=== PATIENT | female | born 1960 | race Caucasian/White ===

== ENCOUNTER 2018-04-11 05:55 | Emergency (ER) | payer OTHER ==
[2018-04-11] MEDS ORDERED: KETOROLAC 30 MG/1 ML SDV IVP ONE (06:00)
[2018-04-11] MEDS ORDERED: ONDANSETRON 4 MG/2 ML VIAL IVP ONE ×2 (06:00→08:22)
[2018-04-11] MEDS ORDERED: NS 1,000 ML IV ONE ×2 (06:00→08:22)
[2018-04-11] MEDS ORDERED: HALOPERIDOL LACT 5 MG/ML INJ IVP ONE ×3 (06:05→06:53)
--- NOTE | 2018-04-11 06:08 | EDPHY ---
H & P Stated Complaint: LLQ abd pain, n/v, "feels like my pancreatitis" Source: Patient, EMS Exam Limitations: No limitations - Personal History Current Tetanus Diphtheria and Acellular Pertussis (TDAP): Yes Tetanus Vaccine Date: 2015 - Medical/Surgical History Hx Asthma: No Hx Chronic Respiratory Disease: No Hx Diabetes: No Hx Cardiac Disease: No Hx Renal Disease: No Hx Cirrhosis: No Hx Alcoholism: No Hx HIV/AIDS: No Hx Splenectomy or Spleen Trauma: No Other PMH: Divertiulitis, pancreatitis - Social History Smoking Status: Heavy smoker Time Seen by Provider: 04/11/18 06:00 HPI/ROS: HPI The patient presents with left lower quadrant abdominal pain for the last several hours which feels like her prior episodes of pancreatitis, she is brought in by ambulance from her car outside of a bar. 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 The pain is associated with nausea and vomiting, has been constant and is moderate in severity. She has had this pain before with pancreatitis. She had 1 episode of pancreatitis 1 year ago and another about 15 years ago. She does not drink alcohol. REVIEW OF SYSTEMS 10 systems were reviewed and negative with the exception of the elements mentioned in the history of present illness. PMHx: History of pancreatitis, reported history of diverticulitis Soc Hx: Lives in [place], does not have a primary care doctor PHYSICAL General Appearance: Alert, uncomfortable appearing, dry heaving Eyes: Pupils equal and round no pallor or injection ENT, Mouth: Mucous membranes moist Respiratory: There are no retractions, lungs are clear to auscultation Cardiovascular: Regular rate and rhythm Gastrointestinal: Abdomen is soft, exam is inconsistent, sometimes she jumps when I press her left abdomen and sometimes she does not move Neurological: A&O, moves all extremities Skin: Warm and dry, no rashes Musculoskeletal: Neck is supple non tender Extremities: symmetrical, full range of motion Psychiatric: Patient is oriented X 3, there is no agitation (RiguzziRadha) Constitutional: Initial Vital Signs Temperature (C) 36.4 C 04/11/18 06:00 Heart Rate 81 04/11/18 06:00 Respiratory Rate 20 04/11/18 06:00 Blood Pressure 184/109 H 04/11/18 06:00 O2 Sat (%) 100 04/11/18 06:00 O2 Delivery Mode Room Air Allergies/Adverse Reactions: Penicillins Allergy (Verified 04/11/18 06:00) Home Medications: Medication Instructions Recorded Ondansetron Odt [Zofran Odt] 4 mg PO Q4PRN PRN #4 tab 04/11/18 Seroquel 04/11/18 Medical Decision Making - Diagnostics Imaging Results: CT abdomen and pelvis reviewed by me and discussed with Dr. Burns shows no acute pathology. Mild intrahepatic duct dilatation. This may be from her previous cholecystectomy or possible retained common bile duct stone. We have no previous films for comparison (Deonte Lugo) ED Course/Re-evaluation: Care was signed over to me at 7:00 a.m.. I reviewed the labs. Again I reviewed the CT. Re-evaluation of patient at 8:15 a.m.. She and I discussed imaging study results, laboratory evaluation, treatment plan including criteria for return importance of follow-up and further evaluation. She expresses understanding Patient tells me she is still nauseated however there is no vomiting. She will be given another L of saline and further Zofran. Re-evaluation again at 9:35 a.m.. Patient is stable. No vomiting or diarrhea. She feels well to be discharged. (Deonte Lugo) Differential Diagnosis: 57-year-old female presents with 4 hr of his left-sided abdominal pain associated with nausea and vomiting which started suddenly which feels like prior pancreatitis which sounds to be idiopathic in history. I met the paramedics at the bedside to obtain their report. Here, she was difficult to place an IV. We eventually ended up placing an EJ. She was given IV fluids, antiemetics, Toradol, Haldol for her symptoms with some improvement. Labs were unremarkable including lipase. Given patient's ongoing symptoms, plan was for CT scan of abdomen pelvis. At approximately 7:15 a.m., the case is signed out to the oncoming provider Dr. Lugo to follow up on patient's CT scan. (Radha Rahman) No evidence for pancreatitis or acute abdominal pathology (Deonte Lugo) - Data Points Laboratory Results: Laboratory Results 04/11/18 06:30 04/11/18 06:30 04/11/18 04/11/18 04/11/18 07:30 06:30 06:30 WBC 7.99 10^3/uL 10^3/uL (3.80-9.50) RBC 4.45 10^6/uL 10^6/uL (4.18-5.33) Hgb 13.2 g/dL g/dL (12.6-16.3) Hct 39.8 % % (38.0-47.0) MCV 89.4 fL fL (81.5-99.8) MCH 29.7 pg pg (27.9-34.1) MCHC 33.2 g/dL g/dL (32.4-36.7) RDW 14.6 % % (11.5-15.2) Plt Count 324 10^3/uL 10^3/uL (150-400) MPV 8.9 fL fL (8.7-11.7) Neut % (Auto) 67.6 % % (39.3-74.2) Lymph % (Auto) 24.5 % % (15.0-45.0) Cataño % (Auto) 4.4 % L % (4.5-13.0) Eos % (Auto) 2.5 % % (0.6-7.6) Baso % (Auto) 0.6 % % (0.3-1.7) Nucleat RBC Rel Count 0.0 % % (0.0-0.2) Absolute Neuts (auto) 5.40 10^3/uL 10^3/uL (1.70-6.50) Absolute Lymphs (auto) 1.96 10^3/uL 10^3/uL (1.00-3.00) Absolute Monos (auto) 0.35 10^3/uL 10^3/uL (0.30-0.80) Absolute Eos (auto) 0.20 10^3/uL 10^3/uL (0.03-0.40) Absolute Basos (auto) 0.05 10^3/uL 10^3/uL (0.02-0.10) Absolute Nucleated RBC 0.00 10^3/uL 10^3/uL (0-0.01) Immature Gran % 0.4 % % (0.0-1.1) Immature Gran # 0.03 10^3/uL 10^3/uL (0.00-0.10) Sodium 139 mEq/L mEq/L (135-145) Potassium 4.2 mEq/L mEq/L (3.5-5.2) Chloride 109 mEq/L mEq/L (97-110) Carbon Dioxide 23 mEq/l mEq/l (22-31) Anion Gap 7 mEq/L mEq/L (6-14) BUN 17 mg/dL mg/dL (7-23) Creatinine 0.6 mg/dL mg/dL (0.6-1.0) Estimated GFR > 60 Glucose 128 mg/dL H mg/dL (70-100) Calcium 9.9 mg/dL mg/dL (8.5-10.4) Total Bilirubin 0.5 mg/dL mg/dL (0.1-1.4) Conjugated Bilirubin 0.1 mg/dL mg/dL (0.0-0.5) Unconjugated Bilirubin 0.4 mg/dL mg/dL (0.0-1.1) AST 26 IU/L IU/L (14-46) ALT 27 IU/L IU/L (9-52) Alkaline Phosphatase 86 IU/L IU/L (38-126) Total Protein 7.5 g/dL g/dL (6.3-8.2) Albumin 4.6 g/dL g/dL (3.5-5.0) Lipase 37 IU/L IU/L (23-300) Urine Color PALE YELLOW Urine Appearance CLEAR Urine pH 6.0 (5.0-7.5) Ur Specific [place] > 1.035 H (1.002-1.030) Urine Protein NEGATIVE (NEGATIVE) Urine Ketones TRACE H (NEGATIVE) Urine Blood NEGATIVE (NEGATIVE) Urine Nitrate NEGATIVE (NEGATIVE) Urine Bilirubin NEGATIVE (NEGATIVE) Urine Urobilinogen NEGATIVE EU EU (0.2-1.0) Ur Leukocyte Esterase NEGATIVE (NEGATIVE) Urine RBC NONE SEEN /hpf /hpf (0-3) Urine WBC 0-1 /hpf /hpf (0-3) Ur Epithelial Cells NONE SEEN /lpf /lpf (NONE-1+) Urine Glucose 1+ H (NEGATIVE) Ethyl Alcohol < 10 mg/dL mg/dL (0-10) Medications Given: Discontinued Medications Diphenhydramine HCl (Benadryl Injection) 25 mg IVP EDNOW ONE Stop: 04/11/18 06:40 Last Admin: 04/11/18 06:41 Dose: 25 mg Haloperidol Lactate (Haldol Injection) 2.5 mg IVP EDNOW ONE Stop: 04/11/18 06:06 Last Admin: 04/11/18 06:27 Dose: 2.5 mg Haloperidol Lactate (Haldol Injection) 2.5 mg IVP EDNOW ONE Stop: 04/11/18 06:40 Last Admin: 04/11/18 06:41 Dose: 2.5 mg Haloperidol Lactate (Haldol Injection) 5 mg IVP EDNOW ONE Stop: 04/11/18 06:54 Last Admin: 04/11/18 06:55 Dose: 5 mg Sodium Chloride (Ns) 1,000 mls @ 0 mls/hr IV EDNOW ONE; Wide Open PRN Reason: Protocol Stop: 04/11/18 06:01 Last Admin: 04/11/18 06:27 Dose: 1,000 mls Sodium Chloride (Ns) 1,000 mls @ 0 mls/hr IV EDNOW ONE; Wide Open PRN Reason: Protocol Stop: 04/11/18 08:23 Last Admin: 04/11/18 08:32 Dose: 1,000 mls Ketorolac Tromethamine (Toradol) 15 mg IVP EDNOW ONE Stop: 04/11/18 06:01 Last Admin: 04/11/18 06:26 Dose: 15 mg Ondansetron HCl (Zofran) 4 mg IVP EDNOW ONE Stop: 04/11/18 06:01 Last Admin: 04/11/18 06:27 Dose: 4 mg Ondansetron HCl (Zofran) 4 mg IVP EDNOW ONE Stop: 04/11/18 08:23 Last Admin: 04/11/18 08:32 Dose: 4 mg Promethazine HCl (Phenergan) 25 mg IVP EDNOW ONE Stop: 04/11/18 07:21 Last Admin: 04/11/18 07:25 Dose: 25 mg Departure - Departure Disposition: Home, Routine, Self-Care Clinical Impression: Abdominal pain Qualifiers: Abdominal location: generalized Qualified Code(s): R10.84 - Generalized abdominal pain Condition: Good Instructions: Acute Abdominal Pain (ED), Acute Nausea and Vomiting (ED) Additional Instructions: Zofran if needed for nausea and vomiting. 1 pill every 4-6 hours as needed for nausea and vomiting Frequent, small sips fluids. Gradual diet advancement Return for worsening symptoms Re-evaluation 2-3 days if not improved Referrals: Patient,NotPresent [Unknown] - As per Instructions Jignesh Engel MD [Medical Doctor] - 2-3 days, if not improved Prescriptions: Ondansetron Odt [Zofran Odt] 4 mg PO Q4PRN PRN #4 tab PRN Reason: Nausea/Vomiting, Use 1st
[2018-04-11 06:38] LABS: PLATELET COUNT 324 10^3/uL (150-400)
[2018-04-11] MEDS ORDERED: HALOPERIDOL LACT 5 MG/ML INJ ONE (06:40)
[2018-04-11] MEDS ORDERED: IOHEXOL 300 mgI/ML (OMNIPAQUE) 150 ML BTL IV ONE (07:04)
[2018-04-11] MEDS ORDERED: PROMETHAZINE HCL 25 MG/ML INJ IVP ONE (07:20)
[2018-04-11] MEDS ORDERED: ONDANSETRON 4MG PREPACK#2 BTL TAKEHOME ONE (09:52)
[2018-04-11 10:03] VITALS: BP 154/67
== END 2018-04-11 10:15 | disposition home or self-care (01) ==
DX: R11.2 Nausea with vomiting, unspecified (principal); R10.32 Left lower quadrant pain; Z87.19 Personal history of other diseases of the digestive system
CPT/HCPCS: 74177; 96361; 96374; 96375; 96376; 99285; J1200; J1630; J1885; J2405; J2550; Q9967; G0480